=== PATIENT | female | born 1995 | race Two or more races ===

== ENCOUNTER 2020-10-08 09:25 | Outpatient (CLI) | payer BC | END 2020-10-08 23:59 | disposition home or self-care (01) | LOC: EDSEX 09:25 → WOU 09:25 | PROVIDERS: ATTEND Podiatrist Foot & Ankle Surgery | DX: M20.12 Hallux valgus (acquired), left foot (principal); M20.11 Hallux valgus (acquired), right foot; M21.622 Bunionette of left foot; M21.621 Bunionette of right foot; M76.71 Peroneal tendinitis, right leg; M79.672 Pain in left foot; M79.671 Pain in right foot; L60.4 Beau's lines | CPT/HCPCS: 73600-TC; 73630-TC; G0463 ==

== ENCOUNTER 2020-11-01 09:48 | Outpatient (CLI) | payer BC | END 2020-11-01 23:59 | disposition home or self-care (01) | LOC: WOU 09:48 | PROVIDERS: ATTEND Podiatrist Foot & Ankle Surgery | DX: M76.71 Peroneal tendinitis, right leg (principal); M20.12 Hallux valgus (acquired), left foot; M20.11 Hallux valgus (acquired), right foot; M21.622 Bunionette of left foot; M21.621 Bunionette of right foot; L60.4 Beau's lines; L60.3 Nail dystrophy; M79.672 Pain in left foot; M79.671 Pain in right foot | CPT/HCPCS: G0463 ==

== ENCOUNTER 2020-11-01 11:35 | Outpatient (CLI) | payer BC | END 2020-11-01 23:59 | disposition home or self-care (01) | LOC: MRI 11:35 | PROVIDERS: ATTEND Podiatrist Foot & Ankle Surgery | DX: M76.71 Peroneal tendinitis, right leg (principal) | CPT/HCPCS: 73721-TC ==

== ENCOUNTER 2020-11-19 11:05 | Outpatient (CLI) | payer BC | END 2020-11-19 23:59 | disposition home or self-care (01) | LOC: WOU 11:05 | PROVIDERS: ATTEND Podiatrist Foot & Ankle Surgery | DX: M76.71 Peroneal tendinitis, right leg (principal); M20.12 Hallux valgus (acquired), left foot; M20.11 Hallux valgus (acquired), right foot; M21.622 Bunionette of left foot; M21.621 Bunionette of right foot; L60.4 Beau's lines; L60.3 Nail dystrophy; M79.672 Pain in left foot; M79.671 Pain in right foot | CPT/HCPCS: 11042; G0463 ==

== ENCOUNTER 2020-12-27 09:08 | Outpatient (CLI) | payer BC | END 2020-12-27 23:59 | disposition home or self-care (01) | LOC: WOU 09:08 | PROVIDERS: ATTEND Podiatrist Foot & Ankle Surgery | DX: L60.3 Nail dystrophy (principal); B35.1 Tinea unguium; M20.12 Hallux valgus (acquired), left foot; M20.11 Hallux valgus (acquired), right foot; M21.622 Bunionette of left foot; M21.621 Bunionette of right foot; M76.71 Peroneal tendinitis, right leg; L60.4 Beau's lines; M79.672 Pain in left foot; M79.671 Pain in right foot | CPT/HCPCS: G0463 ==

== ENCOUNTER 2024-11-04 12:35 | Emergency (ER) | payer BC ==
[~2024-11-04] VITALS: Ht 167.6 cm; Wt 76.7 kg
[2024-11-04 13:14] LABS: BASOPHILS % (AUTO) 0.3 % (0.0-2.0); EOSINOPHILS % (AUTO) 0.8 % (0.0-6.0); HEMATOCRIT 42 % (33-45); HEMOGLOBIN 14.2 g/dL (11.5-14.8); LYMPHOCYTES # (AUTO) 1.6 K/uL (0.8-4.8); LYMPHOCYTES % (AUTO) 29.7 % (20.0-44.0); MEAN CORPUSCULAR HEMOGLOBIN 29 PG (26.0-33.0); MEAN CORPUSCULAR HGB CONC 34 g/dl (31.0-36.0); MEAN CORPUSCULAR VOLUME 86 fL (82-100); MONOCYTES # (AUTO) 0.4 K/uL (0.1-1.30); MONOCYTES % (AUTO) 6.8 % (2.0-12.0); NEUTROPHILS # (AUTO) 3.4 K/uL (1.8-8.9); NEUTROPHILS % (AUTO) 62.4 % (43.0-81.0); PLATELET COUNT (AUTO) 222 K/uL (150-450); RED BLOOD CELL COUNT(AUTO) 4.88 MIL/uL (4.0-5.2); RED CELL DISTRIBUTION WIDTH 13.2 % (11.5-15.0); WHITE BLOOD COUNT (AUTO) 5.4 K/uL (4.3-11.0)
[2024-11-04 13:24] LABS: BILIRUBIN,URINE NEGATIVE (NEGATIVE); BLOOD, URINE NEGATIVE Ery/uL (NEGATIVE); COLOR,URINE YELLOW (YELLOW); KETONES,URINE NEGATIVE (NEGATIVE); LEUKOCYTE ESTERASE ,URINE NEGATIVE (NEGATIVE); NITRITE, URINE NEGATIVE (NEGATIVE); PROTEIN,URINE NEGATIVE (NEGATIVE); UGLUCOSE NEGATIVE (NEGATIVE); UROBILINOGEN,URINE 0.2 EU/dL (0.2)
[2024-11-04 13:25] LABS: PREGNANCY TEST URINE QUAL NEGATIVE (NEGATIVE)
[2024-11-04 13:26] LABS: APPEARANCE,URINE CLEAR (CLEAR)
[2024-11-04 13:37] LABS: ALANINE AMINOTRANSFERASE 53 U/L (12-78); ALBUMIN 4.4 g/dL (3.4-5.0); ALKALINE PHOSPHATASE 96 U/L (46-116); ASPARTATE AMINOTRANSFERASE 24 U/L (15-37); BILIRUBIN,DIRECT 0.1 mg/dL (0.0-0.2); BILIRUBIN,TOTAL 0.5 mg/dL (0.2-1.0); CALCIUM, SERUM 9.4 mg/dL (8.5-10.1); CARBON DIOXIDE 31 mmol/L (21-32); CHLORIDE 102 mmol/L (98-107); CREATININE 0.7 mg/dL (0.6-1.3); GLUCOSE 93 mg/dL (74-106); LIPASE 36 U/L (16-77); POTASSIUM 3.7 mmol/L (3.5-5.1); SODIUM SERUM 141 mmol/L (136-145); TOTAL PROTEIN, SERUM 8.1 g/dL (6.4-8.2); UREA NITROGEN, BLOOD 13 mg/dL (7-18)
[2024-11-04] MEDS ORDERED: IBUPROFEN 600 MG TABLET ONE (14:31)
[2024-11-04] MEDS: IBUPROFEN 600 MG TABLET PO ONE (14:37)
[2024-11-04 14:39] VITALS: BP 117/80; TEMP 98.5; O2SAT 100
== END 2024-11-04 14:41 | disposition home or self-care (01) ==
LOC: ER 12:51
DX: R07.89 Other chest pain (principal); R94.31 Abnormal electrocardiogram [ECG] [EKG]
CPT/HCPCS: 36415; 71045-TC; 76770-TC; 80048-TC; 80076-TC; 83690-TC; 84484-TC; 84703-TC; 85025-TC

== ENCOUNTER 2024-12-27 08:45 | Emergency (ER) | payer BC ==
[~2024-12-27] VITALS: Ht 167.6 cm; Wt 74.8 kg
[2024-12-27 09:13] LABS: APPEARANCE,URINE CLEAR (CLEAR); BILIRUBIN,URINE Negative (NEGATIVE); BLOOD, URINE Negative Ery/uL (NEGATIVE); COLOR,URINE YELLOW (YELLOW); KETONES,URINE Negative (NEGATIVE); LEUKOCYTE ESTERASE ,URINE Negative (NEGATIVE); PH,URINE 5.5 (5.0-8.0); PROTEIN,URINE 30 mg/dl (NEGATIVE); UGLUCOSE Negative (NEGATIVE); UROBILINOGEN,URINE 0.2 EU/dL (0.2)
[2024-12-27 09:14] LABS: NITRITE, URINE NEGATIVE (NEGATIVE); PREGNANCY TEST URINE QUAL NEGATIVE (NEGATIVE)
[2024-12-27 09:16] LABS: BASOPHILS % (AUTO) 0.2 % (0.0-2.0); EOSINOPHILS # (AUTO) 0.1 K/uL (0.0-0.7); EOSINOPHILS % (AUTO) 1.7 % (0.0-6.0); HEMATOCRIT 44 % (33-45); HEMOGLOBIN 14.6 g/dL (11.5-14.8); LYMPHOCYTES # (AUTO) 1.7 K/uL (0.8-4.8); LYMPHOCYTES % (AUTO) 34.9 % (20.0-44.0); MEAN CORPUSCULAR HEMOGLOBIN 29 PG (26.0-33.0); MEAN CORPUSCULAR HGB CONC 34 g/dl (31.0-36.0); MEAN CORPUSCULAR VOLUME 88 fL (82-100); MONOCYTES # (AUTO) 0.3 K/uL (0.1-1.30); MONOCYTES % (AUTO) 6.8 % (2.0-12.0); NEUTROPHILS # (AUTO) 2.7 K/uL (1.8-8.9); NEUTROPHILS % (AUTO) 56.4 % (43.0-81.0); PLATELET COUNT (AUTO) 197 K/uL (150-450); RED BLOOD CELL COUNT(AUTO) 4.95 MIL/uL (4.0-5.2); RED CELL DISTRIBUTION WIDTH 12.6 % (11.5-15.0); WHITE BLOOD COUNT (AUTO) 4.8 K/uL (4.3-11.0)
[2024-12-27 09:24] LABS: CALCIUM, SERUM 8.9 mg/dL (8.5-10.1); CREATININE 0.7 mg/dL (0.6-1.3); POTASSIUM 3.6 mmol/L (3.5-5.1)
[2024-12-27 09:28] LABS: ADD URINE CULTURE NO; BACTERIA,URINE Rare /HPF (None Seen); RBC,URINE 0-2 /HPF (0-2); SQUAMOUS EPITHELIAL CELL,UR Many /HPF (None Seen)
[2024-12-27] MEDS ORDERED: KETOROLAC TROMETHAMINE INJ 30 MG/ML VIAL ONE (09:43)
[2024-12-27] MEDS ORDERED: METOCLOPRAMIDE HCL 10 MG/2 ML VIAL ONE (09:43)
[2024-12-27] MEDS ORDERED: DICYCLOMINE HCL 10 MG/5 ML UDC ONE (09:43)
[2024-12-27] MEDS: METOCLOPRAMIDE HCL 10 MG/2 ML VIAL IV ONE (09:47)
[2024-12-27] MEDS: KETOROLAC TROMETHAMINE INJ 30 MG/ML VIAL IV ONE (09:48)
[2024-12-27] MEDS: DICYCLOMINE HCL 10 MG/5 ML UDC PO ONE (09:48)
[2024-12-27 10:15] VITALS: BP 122/64; TEMP 98; O2SAT 98
[2024-12-27] MEDS ORDERED: DICY20TA11 PO (10:25)
== END 2024-12-27 10:33 | disposition home or self-care (01) ==
LOC: ER 08:48
DX: R10.12 Left upper quadrant pain (principal); R11.0 Nausea; R10.2 Pelvic and perineal pain
CPT/HCPCS: 36415; 80048-TC; 81001; 84702-TC; 84703-TC; 85025-TC; J1885; J2765

== ENCOUNTER 2025-07-27 05:50 | Emergency (ER) | payer BC ==
[~2025-07-27] VITALS: Ht 167.6 cm; Wt 70.3 kg
[~2025-07-27 05:50] MED LIST: DICY20TA11 PO
[2025-07-27 06:53] LABS: PREGNANCY TEST URINE QUAL NEGATIVE (NEGATIVE)
[2025-07-27 07:07] LABS: APPEARANCE,URINE CLEAR (CLEAR); BLOOD, URINE TRACE-INTA Ery/uL (NEGATIVE); LEUKOCYTE ESTERASE ,URINE NEGATIVE (NEGATIVE); NITRITE, URINE NEGATIVE (NEGATIVE); UGLUCOSE NEGATIVE (NEGATIVE)
[2025-07-27 07:46] LABS: ADD URINE CULTURE YES; SQUAMOUS EPITHELIAL CELL,UR Many /HPF (None Seen)
[2025-07-27 08:27] VITALS: BP 106/73; TEMP 98.5; O2SAT 99
== END 2025-07-27 08:28 | disposition home or self-care (01) ==
LOC: ER 05:54
DX: R10.20 Pelvic and perineal pain unspecified side (principal); R11.0 Nausea
CPT/HCPCS: 76856-TC; 81001; 84703-TC; 87086-TC